=== PATIENT | female | born 1960 | race Caucasian/White ===

== ENCOUNTER 2017-06-30 08:50 | Day surgery (SDC) | payer OTHER | END 2017-06-30 14:00 | disposition home or self-care (01) | LOC: AMB-ENDOS 08:50 | DX: D12.7 Benign neoplasm of rectosigmoid junction (principal); D12.5 Benign neoplasm of sigmoid colon; K64.8 Other hemorrhoids ==

== ENCOUNTER 2022-06-03 07:49 | Emergency (ER) | payer OTHER ==
[~2022-06-03] VITALS: Ht 157.5 cm; Wt 54.4 kg
== END 2022-06-03 14:28 | disposition home or self-care (01) ==
LOC: ER 07:49
DX: M25.512 Pain in left shoulder (principal); R20.0 Anesthesia of skin; Z91.038 Other insect allergy status